=== PATIENT | female | born 1985 | race Native Hawaiian/Other Pacific Islander ===

== ENCOUNTER → 2017-05-23 | Outpatient (CLI) | payer BC ==
[~2017-05-23] MED LIST: SERT50 PO
== END | disposition home or self-care (01) ==
LOC: LAB EV 10:32
DX: J02.9 Acute pharyngitis, unspecified (principal)
CPT/HCPCS: 87070; 87147

== ENCOUNTER → 2018-05-24 | Outpatient (CLI) | payer BC | END | disposition home or self-care (01) | LOC: LAB EV 14:06 → LAB SHORT 14:06 | DX: J02.9 Acute pharyngitis, unspecified (principal) | CPT/HCPCS: 87070; 87147 ==

== ENCOUNTER 2018-06-28 22:53 | Emergency (ER) | payer OTHER, BC ==
[~2018-06-28] VITALS: Ht 170.2 cm; Wt 92.1 kg
[2018-06-29] MEDS ORDERED: IBUP800 PO (01:12)
== END 2018-06-29 01:25 | disposition home or self-care (01) ==
LOC: ER 22:53
DX: S83.91XA Sprain of unspecified site of right knee, initial encounter (principal); W01.198A Fall on same level from slipping, tripping and stumbling with subsequent striking against other object, initial encounter; Z87.891 Personal history of nicotine dependence
CPT/HCPCS: 73060; 73562-RT; 99283-25

== ENCOUNTER → 2019-08-19 | Outpatient (CLI) | payer OTHER ==
[~2019-08-19] MED LIST changes: +IBUP800 PO
[2019-08-23 12:07] LABS: HPV 16 Negative (Negative); HPV 18 Negative (Negative); HPV OTHER HR TYPES Negative (Negative)
== END | disposition home or self-care (01) ==
LOC: LAB SHORT 14:39 → LAB UCHC 14:39
PROVIDERS: Internal Medicine
DX: Z01.419 Encounter for gynecological examination (general) (routine) without abnormal findings (principal)
CPT/HCPCS: 87624; G0123

== ENCOUNTER 2020-06-16 09:40 | Day surgery (SDC) | payer OTHER | END 2020-06-16 22:56 | disposition home or self-care (01) | LOC: MOI US 09:40 → MOI MAM 10:15 → MOI US 22:56 | DX: N62 Hypertrophy of breast (principal); N60.81 Other benign mammary dysplasias of right breast | CPT/HCPCS: 19083; 77065; 88305; A4648; G0279 ==

== ENCOUNTER → 2021-08-02 | Outpatient (CLI) | payer OTHER ==
[2021-08-04 16:10] LABS: FATS, NEUTRAL Normal (.); FATS, TOTAL Increased (.)
== END | disposition home or self-care (01) ==
LOC: LAB SHORT 08:41 → LAB 08:41
PROVIDERS: Internal Medicine
DX: K92.2 Gastrointestinal hemorrhage, unspecified (principal); R10.9 Unspecified abdominal pain; R19.5 Other fecal abnormalities; R19.7 Diarrhea, unspecified
CPT/HCPCS: 82653; 82705

== ENCOUNTER → 2023-10-01 | Outpatient (CLI) | payer OTHER | LOC: LAB SHORT 12:32 → LAB 12:32 | DX: J02.0 Streptococcal pharyngitis (principal) | CPT/HCPCS: 87081 ==

== ENCOUNTER → 2024-07-06 | Outpatient (CLI) | payer BC ==
[2024-07-06 10:45] LABS: BASOPHILS ABSOLUTE AUTO 0.03 K/mm3 (0.00-0.23); BASOPHILS PERCENT AUTO 1 % (0-2); EOSINOPHILS ABSOLUTE AUTO 0.14 K/mm3 (0.00-0.68); EOSINOPHILS PERCENT AUTO 2 % (0-6); Hematocrit 40.7 % (33.0-51.0); Hemoglobin 13.9 g/dL (11.5-16.0); IMMATURE GRAN ABSOLUTE AUTO 0.01 K/mm3 (0.00-0.10); IMMATURE GRAN PERCENT AUTO 0 % (0-1); LYMPHOCYTES ABSOLUTE AUTO 1.59 K/mm3 (0.84-5.20); LYMPHOCYTES PERCENT AUTO 27 % (21-46); MONOCYTES ABSOLUTE AUTO 0.49 K/mm3 (0.16-1.47); MONOCYTES PERCENT AUTO 8 % (4-13); Mean Corpuscular HGB 30.2 pg (26.0-34.0); Mean Corpuscular HGB Conc 34.2 g/dL (31.5-36.5); Mean Corpuscular Volume 89 fL (80-100); Mean Platelet Volume 11.2 fL (9.1-12.4); NEUTROPHILS ABSOLUTE AUTO 3.61 K/mm3 (1.96-9.15); NEUTROPHILS PERCENT AUTO 62 % (41-73); Platelet Count 227 K/mm3 (150-400); RDW Coefficient Variation 12.2 % (11.7-14.2); RDW Standard Deviation 39.5 fL (35.1-46.3); White Blood Cell Count 5.87 K/mm3 (4.00-11.30)
[2024-07-06 11:04] LABS: Albumin, Blood 3.6 g/dL (3.4-5.0); Albumin/Globulin Ratio 0.9 (0.8-1.8); Bilirubin, Total 0.6 mg/dL (0.1-1.0); Bun/Creatinine Ratio 15.5 (12.0-20.0); Calcium, Blood 8.9 mg/dL (8.5-10.1); Creatinine, Blood 0.71 mg/dL (0.40-1.00); Globulin, Blood 3.8 g/dL (2.2-4.0); Potassium, Blood 4.1 mmol/L (3.5-5.5); Thyroid Stimulating Hormone 1.454 uIU/mL (0.360-4.800); Total Protein, Blood 7.4 g/dL (6.4-8.2)
== END | disposition home or self-care (01) ==
LOC: LAB SHORT 10:40
PROVIDERS: Physician Assistant Medical
DX: N92.1 Excessive and frequent menstruation with irregular cycle (principal)
CPT/HCPCS: 80053; 82728; 83540; 83550; 84443; 85025